=== PATIENT | male | born 1980 | race Native Hawaiian/Other Pacific Islander ===

== ENCOUNTER 2021-04-27 03:30 | Emergency (ER) | payer OTHER ==
[~2021-04-27] VITALS: Ht 182.9 cm; Wt 90.3 kg
[2021-04-27 04:40] LABS: POTASSIUM 3.4 mmol/L (3.6-5.2)
[2021-04-27 04:52] LABS: PLATELET COUNT 248 K/uL (142-355)
[2021-04-28 07:10] VITALS: BP 121/69; TEMP 96.6
== END 2021-04-28 11:14 | disposition home or self-care (01) ==
LOC: ED 03:30
PROVIDERS: Family Medicine
DX: F32.89 Other specified depressive episodes (principal); F41.8 Other specified anxiety disorders; F20.89 Other schizophrenia; Z20.822 Contact with and (suspected) exposure to COVID-19
CPT/HCPCS: 36415; 80053; 80307; 80320; 80329; 81000; 85027; 87086; 87088; 87635; 93005; 96372; 99285; J3486; U0003